=== PATIENT | female | born 2000 | race Caucasian/White ===

== ENCOUNTER 2020-09-22 11:17 | Emergency (ER) | payer OTHER ==
[~2020-09-22] VITALS: Ht 154.9 cm; Wt 98.9 kg
[2020-09-22 11:42] VITALS: BP 131/73
--- NOTE | 2020-09-22 11:47 | NUR ---
Patient ambulated to bed 3. RN evaluating the patient at bedside. Addendum: 09/22/20 at [address] [facility] [address] Reddy at the bedside evaluating patient.
--- NOTE | 2020-09-22 11:49 | NUR ---
20 Y/O FEMALE C/O DIZZINESS X1WEEK DENIES SYNCOPE. PT STATES SHE HAD VERTIGO EPISODE OVER A WEEK AGO THAT RESOLVED BUT TODAY CAME BACK. DENIES FEVER/CHILLS. DENIES PAIN. DENIES DYSURIA/DISCHARGE/HEMATURIA. DENIES PMH NKA
[2020-09-22] MEDS ORDERED: IBUP-2213 PO (13:20)
[2020-09-22] MEDS ORDERED: MECL-303 PO (13:20)
[2020-09-22 13:35] VITALS: BP 131/73
--- NOTE | 2020-09-22 13:35 | NUR ---
Patient discharged with v/s stable. Written and verbal after care instructions given and explained. Patient alert, oriented and verbalized understanding of instructions. Ambulatory with steady gait. All questions addressed prior to discharge. ID band removed. Patient advised to follow up with PMD. Rx of ibuprofen, meclizine hcl given. Patient educated on indication of medication including possible reaction and side effects. Opportunity to ask questions provided and answered.
== END 2020-09-22 13:35 | disposition home or self-care (01) ==
LOC: MED 11:17
DX: H61.23 Impacted cerumen, bilateral (principal); R51.9 Headache, unspecified; R42 Dizziness and giddiness
CPT/HCPCS: 81002; 99282

== ENCOUNTER 2021-01-08 12:02 | Emergency (ER) | payer OTHER ==
[~2021-01-08] VITALS: Ht 160 cm; Wt 81.6 kg
[~2021-01-08 12:02] MED LIST: IBUP-2213 PO; MECL-303 PO
--- NOTE | 2021-01-08 12:10 | NUR ---
PATIENT AMBULATED TO BED 7 AT THIS TIME.
[2021-01-08 12:16] VITALS: BP 140/75
--- NOTE | 2021-01-08 12:20 | NUR ---
pt c/o headache with dizziness that started while at work this am with generalized weakness. pt ambulates to [facility] with steady gait. dr zaman at bedside for eval.
[2021-01-08] MEDS ORDERED: ACETAMINOPHEN EXTRA STRENGTH 500 MG TAB PO ONE (12:30)
[2021-01-08] MEDS ORDERED: METOCLOPRAMIDE 10 MG TAB PO ONE (12:30)
[2021-01-08] MEDS ORDERED: KETOROLAC 30 MG/ML VIAL IM ONE (12:30)
[2021-01-08] MEDS ORDERED: IBUP-2213 PO (12:46)
[2021-01-08] MEDS ORDERED: ACET-10509 PO (12:46)
[2021-01-08 13:07] VITALS: BP 132/70
--- NOTE | 2021-01-08 13:07 | NUR ---
pt verbalizes dc instructions no acute distress noted. stable on dc.
== END 2021-01-08 13:07 | disposition home or self-care (01) ==
LOC: MED 12:02
DX: R51.9 Headache, unspecified (principal); R20.2 Paresthesia of skin
CPT/HCPCS: 81025; 96372; 99283; J1885; J8597

== ENCOUNTER 2021-09-19 05:10 | Emergency (ER) | payer OTHER ==
[~2021-09-19] VITALS: Ht 154.9 cm; Wt 97.5 kg
[~2021-09-19 05:10] MED LIST changes: +ACET-10509 PO
[2021-09-19 05:54] VITALS: BP 126/67
--- NOTE | 2021-09-19 06:55 | NUR ---
Dr. Gibbons examining patient.
[2021-09-19] MEDS ORDERED: POLY15SO74 OP (07:00)
[2021-09-19] MEDS ORDERED: METH4TAB1 PO (07:00)
[2021-09-19 07:03] VITALS: BP 126/67
--- NOTE | 2021-09-19 07:03 | NUR ---
Patient discharged with v/s stable. Written and verbal after care instructions given and explained for Pharyngitis. Patient alert, oriented and verbalized understanding of instructions. Ambulatory with steady gait. All questions addressed prior to discharge. ID band removed. Patient advised to follow up with PMD. Rx of Medrol and Artificial tears given. Patient educated on indication of medication including possible reaction and side effects. Opportunity to ask questions provided and answered.
== END 2021-09-19 07:03 | disposition home or self-care (01) ==
LOC: MED 05:10
DX: J02.8 Acute pharyngitis due to other specified organisms (principal)
CPT/HCPCS: 99283

== ENCOUNTER 2023-09-19 17:06 | Emergency (ER) | payer OTHER ==
[~2023-09-19] VITALS: Ht 152.4 cm; Wt 92.1 kg
[~2023-09-19 17:06] MED LIST changes: +METH4TAB1 PO; +POLY15SO74 OP
[2023-09-19 17:36] VITALS: BP 134/73; PULSE 65; RESP 16; TEMP 98.3; O2SAT 100
[2023-09-19 18:38] LABS: BASOPHILS # (AUTO) 0.1 K/uL (0.00-0.22); BASOPHILS % (AUTO) 0.8 % (0.0-2.0); EOSINOPHILS # (AUTO) 0.1 K/uL (0-0.4); EOSINOPHILS % (AUTO) 1.3 % (0.0-4.0); HEMOGLOBIN 14.2 g/dL (12.0-16.0); LYMPHOCYTES # (AUTO) 3.5 K/uL (2.5-16.5); LYMPHOCYTES % (AUTO) 29.9 % (20.5-51.1); MEAN CORPUSCULAR HEMOGLOBIN 29 pg (27-31); MEAN CORPUSCULAR HGB CONC 34 g/dL (33-37); MEAN CORPUSCULAR VOLUME 86.9 fL (80-94); MONOCYTES # (AUTO) 0.7 K/uL (0.8-1.0); MONOCYTES % (AUTO) 5.6 % (1.7-9.3); NEUTROPHILS # (AUTO) 7.2 K/uL (1.8-7.7); NEUTROPHILS % (AUTO) 62.4 % (42.2-75.2); PLATELET COUNT (AUTO) 308 K/uL (140-450); RED BLOOD CELL COUNT(AUTO) 4.83 MIL/uL (4.20-5.40); RED CELL DISTRIBUTION WIDTH 12.9 % (11.6-13.7); WHITE BLOOD COUNT (AUTO) 11.6 K/uL (4.8-10.8)
[2023-09-19 18:49] LABS: ANION GAP 11.5 (8-16); CALCIUM 9.1 mg/dL (8.5-10.1); CREATININE 0.7 mg/dL (0.6-1.3); POTASSIUM 3.5 mmol/L (3.5-5.1)
[2023-09-19 18:56] LABS: ALBUMIN 4.3 g/dL (3.4-5.0); BILIRUBIN,DIRECT 0.1 mg/dL (0.0-0.3); TOTAL BILIRUBIN 0.4 mg/dL (0.0-1.0); TOTAL PROTEIN, SERUM 8.4 g/dL (6.4-8.2)
[2023-09-19] MEDS ORDERED: MECL-303 PO (19:52)
[2023-09-19 20:02] VITALS: BP 123/68; PULSE 68; RESP 16; TEMP 98.3; O2SAT 100
[2023-09-19 20:03] LABS: APPEARANCE,URINE CLEAR (CLEAR); BILIRUBIN,URINE NEGATIVE (NEGATIVE); BLOOD, URINE 2+ (NEGATIVE); COLOR,URINE YELLOW (YELLOW); LEUKOCYTE ESTERASE ,URINE NEGATIVE (NEGATIVE); NITRITE, URINE NEGATIVE (NEGATIVE); PROTEIN,URINE NEGATIVE (NEGATIVE); UGLUCOSE NEGATIVE (NEGATIVE); UROBILINOGEN,URINE 0.2 EU/dL (0.2 - 1)
== END 2023-09-19 20:02 | disposition home or self-care (01) ==
LOC: MED 17:06
DX: R42 Dizziness and giddiness (principal); Z79.899 Other long term (current) drug therapy
CPT/HCPCS: 36415; 80048; 80076; 81003; 81025; 85025; 93005; 99284

== ENCOUNTER 2023-12-15 21:05 | Emergency (ER) | payer OTHER ==
[~2023-12-15] VITALS: Ht 154.9 cm; Wt 79.8 kg
[~2023-12-15 21:05] MED LIST changes: -ACET-10509 PO; +ACET500T99 PO
[2023-12-15 21:15] VITALS: BP 111/66; PULSE 63; RESP 18; TEMP 97.8; O2SAT 99
[2023-12-15] MEDS ORDERED: CARB15DR61 OT (21:54)
== END 2023-12-15 22:16 | disposition home or self-care (01) ==
LOC: MED 21:05
DX: H61.22 Impacted cerumen, left ear (principal); Z79.899 Other long term (current) drug therapy
CPT/HCPCS: 99282

== ENCOUNTER 2023-12-26 22:14 | Emergency (ER) | payer OTHER ==
[~2023-12-26] VITALS: Ht 154.9 cm; Wt 88.5 kg
[~2023-12-26 22:14] MED LIST changes: +CARB15DR61 OT
[2023-12-26 22:24] VITALS: BP 114/69; PULSE 59; RESP 16; TEMP 97.6; O2SAT 100
[2023-12-26 22:46] VITALS: BP 114/69; PULSE 59; RESP 16; TEMP 97.6
[2023-12-26 23:23] LABS: BASOPHILS # (AUTO) 0.1 K/uL (0.00-0.22); BASOPHILS % (AUTO) 1.5 % (0.0-2.0); EOSINOPHILS # (AUTO) 0.3 K/uL (0-0.4); HEMATOCRIT 41.9 % (36-48); HEMOGLOBIN 14.2 g/dL (12.0-16.0); LYMPHOCYTES # (AUTO) 2.9 K/uL (2.5-16.5); LYMPHOCYTES % (AUTO) 32.6 % (20.5-51.1); MEAN CORPUSCULAR HEMOGLOBIN 30 pg (27-31); MEAN CORPUSCULAR HGB CONC 34 g/dL (33-37); MEAN CORPUSCULAR VOLUME 88.3 fL (80-94); MONOCYTES # (AUTO) 0.6 K/uL (0.8-1.0); MONOCYTES % (AUTO) 6.6 % (1.7-9.3); NEUTROPHILS # (AUTO) 5.1 K/uL (1.8-7.7); NEUTROPHILS % (AUTO) 56.3 % (42.2-75.2); PLATELET COUNT (AUTO) 281 K/uL (140-450); RED BLOOD CELL COUNT(AUTO) 4.75 MIL/uL (4.20-5.40); RED CELL DISTRIBUTION WIDTH 12.6 % (11.6-13.7)
[2023-12-26] MEDS: KETOROLAC 30 MG/ML VIAL IVP ONE (23:24)
[2023-12-26] MEDS: PROCHLORPERAZINE 10 MG/2 ML VIAL IVP ONE (23:30)
[2023-12-26] MEDS: diphenhydrAMINE 50 MG/ML VIAL IVP ONE (23:30)
[2023-12-26 23:31] LABS: ANION GAP 12.8 (8-16); CALCIUM 8.9 mg/dL (8.5-10.1); CARBON DIOXIDE 27.1 mmol/L (21-32); CREATININE 0.7 mg/dL (0.6-1.3); POTASSIUM 3.9 mmol/L (3.5-5.1)
[2023-12-27 01:08] VITALS: O2SAT 100
== END 2023-12-27 00:33 | disposition home or self-care (01) ==
LOC: MED 22:14
DX: R51.9 Headache, unspecified (principal); R42 Dizziness and giddiness; Z79.899 Other long term (current) drug therapy
CPT/HCPCS: 36415; 80048; 81025; 85025; 96374; 96375; 99284; J0780; J1200; J1885